=== PATIENT | male | born 1990 | race Caucasian/White ===

== ENCOUNTER 2019-05-06 07:37 | Emergency (ER) | payer OTHER ==
[2019-05-06 07:49] VITALS: BP 126/71
--- NOTE | 2019-05-06 08:19 | UC ---
Hand/Wrist HPI - HPI Summary HPI Summary: WHILE PLAYING BASKETBALL YESTERDAY MORNING PATIENT JAMMED HIS LEFT FIFTH FINGER. HAS PAIN AND SWELLING. - History Of Current Complaint Chief Complaint: UCUpperExtremity Stated Complaint: FINGER INJURY Time Seen by Provider: 05/06/19 07:54 Hx Obtained From: Patient Onset/Duration: Sudden Onset, Lasting Hours, Still Present Severity Initially: Moderate Severity Currently: Moderate Pain Intensity: 2 Pain Scale Used: 0-10 Numeric Character Of Pain: Sharp Aggravating Factor(s): Movement Alleviating Factor(s): Rest Associated Signs And Symptoms: Positive: Swelling, Bruising Related History: Dominant Hand Right - Allergies/Home Medications Allergies/Adverse Reactions: Allergies Allergy/AdvReac Type Severity Reaction Status Date / Time celery Allergy Itching Verified 05/06/19 07:49 environmental Allergy Congestion Uncoded 05/06/19 07:49 Home Medications: Home Medications Ibuprofen 1 tab PO ONCE PRN 05/06/19 [History Confirmed 05/06/19] PMH/Surg Hx/FS Hx/Imm Hx Previously Healthy: Yes - Surgical History Surgical History: None - Family History Known Family History: Positive: Non-Contributory - Social History Alcohol Use: Weekly Substance Use Type: Marijuana Smoking Status (MU): Never Smoked Tobacco Review of Systems All Other Systems Reviewed And Are Negative: Yes Constitutional: Positive: Negative Skin: Positive: Bruising Respiratory: Positive: Negative Cardiovascular: Positive: Negative Gastrointestinal: Positive: Negative Musculoskeletal: Positive: Arthralgia, Decreased ROM, Edema Physical Exam Triage Information Reviewed: Yes Appearance: Well-Appearing, No Pain Distress, Well-Nourished Vital Signs: Initial Vital Signs Temp 97.5 F 05/06/19 07:44 Pulse 58 05/06/19 07:44 Resp 18 05/06/19 07:44 BP 126/71 05/06/19 07:44 Pulse Ox 98 05/06/19 07:44 Vital Signs Reviewed: Yes Eyes: Positive: Conjunctiva Clear ENT: Positive: Hearing grossly normal Neck: Positive: Supple Respiratory: Positive: No respiratory distress, No accessory muscle use Cardiovascular: Positive: Pulses Normal Abdomen Description: Positive: Soft Musculoskeletal: Positive: ROM Limited @ - LEFT 5TH FINGER, Edema @ - LEFT 5TH FINGER, Other: - TTP LEFT 5TH FINGER PIP JOINT Neurological: Positive: Alert Psychological: Positive: Age Appropriate Behavior Skin: Positive: Other - BRUISING LEFT 5TH FINGER Diagnostics - Radiology LEFT 5TH FINGER XRAYS Radiology Interpretation Completed By: Radiologist Summary of Radiographic Findings: 1. Minimally impacted fracture ulnar dorsal base of the middle phalanx. 2. Mild osteophytosis and joint space narrowing at the PIP joint. 3. Normal articular alignment. 4. Fusiform soft tissue swelling most prominent at the PIP joint. Hand/Wrist Course/Dx - Course Course Of Treatment: X-RAY SHOWS A MINIMALLY IMPACTED FRACTURE OF THE MIDDLE PHALANX OF THE LEFT FIFTH FINGER. FINGER SPLINT APPLIED BY RN. OTC MEDICATIONS NEEDED FOR DISCOMFORT. REST, ICE, ELEVATE. PATIENT WILL FOLLOW-UP WITH ORTHOPEDICS. - Differential Dx/Diagnosis Provider Diagnosis: Fracture of finger, middle phalanx, left, closed Discharge ED - Sign-Out/Discharge Documenting (check all that apply): Patient Departure All imaging exams completed and their final reports reviewed: Yes - Discharge Plan Condition: Stable Disposition: HOME Patient Education Materials: Finger Fracture (ED) Referrals: Juanjo Branch MD [Medical Doctor] - 5 Days Additional Instructions: X-RAYS TODAY SHOW A MINIMALLY IMPACTED FRACTURE OF THE MIDDLE BONE OF YOUR LEFT FIFTH FINGER. KEEP THE SPLINT ON UNTIL SEEN BY ORTHOPEDICS. CALL ORTHOPEDICS TODAY TO SCHEDULE A FOLLOW-UP APPOINTMENT FOR SOMETIME NEXT WEEK. OVER-THE- COUNTER MEDICINES NEEDED FOR DISCOMFORT. APPLY ICE. KEEP HAND ELEVATED. - Billing Disposition and Condition Condition: STABLE Disposition: Home
== END 2019-05-06 08:44 | disposition home or self-care (01) ==
LOC: UCEAST 07:37
DX: S62.627A Displaced fracture of middle phalanx of left little finger, initial encounter for closed fracture (principal); W22.8XXA Striking against or struck by other objects, initial encounter; Y93.67 Activity, basketball; Y92.310 Basketball court as the place of occurrence of the external cause; Y99.8 Other external cause status
CPT/HCPCS: 73140; 99202; G0463